=== PATIENT | female | born 1985 | race Caucasian/White ===

== ENCOUNTER 2024-03-27 18:45 | Emergency (ER) | payer MEDICAID ==
[~2024-03-27] VITALS: Ht 149.9 cm; Wt 73.3 kg
[2024-03-27 18:59] VITALS: O2SAT 97
[2024-03-27 20:39] VITALS: BP 135/87; PULSE 90; RESP 16; TEMP 98.7
== END 2024-03-27 20:41 | disposition home or self-care (01) ==
LOC: ER 18:46
DX: M79.605 Pain in left leg (principal); M54.2 Cervicalgia; Z88.8 Allergy status to other drugs, medicaments and biological substances; V98.8XXA Other specified transport accidents, initial encounter; Y93.89 Activity, other specified; Y92.89 Other specified places as the place of occurrence of the external cause; Y99.8 Other external cause status
CPT/HCPCS: 99282